=== PATIENT | male | born 1965 | race Two or more races ===

== ENCOUNTER 2020-11-19 15:39 | Emergency (ER) | payer OTHER ==
[~2020-11-19] VITALS: Ht 177.8 cm; Wt 81.6 kg
[2020-11-19] MEDS ORDERED: MORGIDOX100 MG (16:02)
[2020-11-19] MEDS ORDERED: BACTRIM DS TAB1 EACH (16:03)
[2020-11-19] MEDS ORDERED: NAPROXEN375 MG PO (20:00)
== END 2020-11-19 20:09 | disposition home or self-care (01) ==
LOC: ER 15:39
DX: E11.621 Type 2 diabetes mellitus with foot ulcer (principal); L97.528 Non-pressure chronic ulcer of other part of left foot with other specified severity; E11.65 Type 2 diabetes mellitus with hyperglycemia; M25.572 Pain in left ankle and joints of left foot

== ENCOUNTER 2021-02-10 17:12 | Inpatient (IN) | payer OTHER ==
[~2021-02-10] VITALS: Ht 177.8 cm; Wt 81.6 kg
[~2021-02-10 17:12] MED LIST: BACTRIM DS TAB1 EACH; MORGIDOX100 MG; NAPROXEN375 MG PO
== END 2021-02-18 16:30 | DRG 239 ==
LOC: ER 17:12 → MEDI 02-11 00:07 → MEDJ 02-11 00:07 → MEDI 02-11 13:16
PROVIDERS: Specialist; ADMIT Internal Medicine; ATTEND Internal Medicine
PROC: B44HZZZ Ultrasonography of Bilateral Lower Extremity Arteries (ICD-10-PCS; 2021-02-11)
PROC: 30233N1 Transfusion of Nonautologous Red Blood Cells into Peripheral Vein, Percutaneous Approach (ICD-10-PCS; 2021-02-11)
PROC: 8E0ZXY6 Isolation (ICD-10-PCS; 2021-02-11)
PROC: 0Y6F0ZZ Detachment at Right Knee Region, Open Approach (ICD-10-PCS; principal; 2021-02-12 17:00)
DX: E11.52 Type 2 diabetes mellitus with diabetic peripheral angiopathy with gangrene (principal); R65.11 Systemic inflammatory response syndrome (SIRS) of non-infectious origin with acute organ dysfunction; N17.8 Other acute kidney failure; I70.261 Atherosclerosis of native arteries of extremities with gangrene, right leg; E11.65 Type 2 diabetes mellitus with hyperglycemia; L97.513 Non-pressure chronic ulcer of other part of right foot with necrosis of muscle; N18.30 Chronic kidney disease, stage 3 unspecified; D64.89 Other specified anemias; B96.1 Klebsiella pneumoniae [K. pneumoniae] as the cause of diseases classified elsewhere; B96.5 Pseudomonas (aeruginosa) (mallei) (pseudomallei) as the cause of diseases classified elsewhere; I12.9 Hypertensive chronic kidney disease with stage 1 through stage 4 chronic kidney disease, or unspecified chronic kidney disease; E11.22 Type 2 diabetes mellitus with diabetic chronic kidney disease; Z79.4 Long term (current) use of insulin; Z20.822 Contact with and (suspected) exposure to COVID-19